=== PATIENT | female | born 1965 | race Asian ===

== ENCOUNTER 2017-11-23 11:47 | Day surgery (SDC) | payer OTHER, SELFPAY ==
[2017-11-23] VITALS (9 sets, daily range): BP systolic 100–133; BP diastolic 58–83; PULSE 78–99; RESP 12–16; TEMP 36.2–36.9; O2SAT 94–98; BMI 27.3
--- NOTE | 2017-11-23 | PATH_ITS ---
[facility] Accession Number: [id number] . 01 Material submitted: . PART A: RIGHT OVARY, FALLOPIAN TUBE AND CYST PART B: LEFT OVARIAN FOSSA BIOPSY PART C: POSTERIOR UTERINE FUNDUS BIOPSY PART D: FIBROID PART E: ENDOMETRIAL CURETTINGS . 02 Diagnosis: A. Right Ovary and Fallopian Tube with Cyst: Benign hemorrhagic cyst, ovary, not further classified (see microscopic description). Fallopian tube unremarkable. . B-C: Biopsies Left Ovarian Fossa and Posterior Uterine Fundus: Changes consistent with endometriosis present in both specimens and supported by immunohistochemistry findings (see microscopic description). . D. Specimen Designated Fibroid: Multiple fragments of leiomyoma, negative for atypia. . E. Endometrial Curettings: Blood containing endometrial surface epithelium and squamous epithelium, negative for atypia. [facility]/11/28/2017 . 02 Electronically signed: . Castillo Katz MD, Pathologist NPI- [id number] . 01 Gross description: . A. Received in formalin, labeled with the patient's name and right ovary, fallopian tube, and cyst, is a 28 g specimen consisting of a 7.1 cm in length by 0.7 cm in diameter fallopian tube with a fimbriated end and an attached 7.3 x 6.7 x 2.9 cm previously opened cyst with a wrinkled, heard-brown external surface. The thickness of the wall cyst averages 0.2 cm. The internal surface of the cyst is pink blue and wrinkled. No excrescences are identified. No normal ovarian tissue is identified. [employer] sections are submitted as follows: A1 - fallopian tube cross-sections and fimbriated end; A2-A3 - cyst wall. B. Received in formalin, labeled with the patient's name and left ovarian fossa biopsy, is one heard-brown soft tissue fragment measuring 0.4 x 0.3 x 0.3 cm. The specimen is entirely submitted in cassette B1. C. Received in formalin, labeled with the patient's name and posterior uterine fundus biopsy, is one heard-brown soft tissue fragment measuring 0.5 x 0.4 x 0.4 cm. The specimen is entirely submitted in cassette C1. D. Received in formalin, labeled with the patient's name and fibroid, are multiple morcellated heard-brown soft tissue fragments measuring 2.4 x 2.1 x 0.6 cm in aggregate. The specimen is entirely submitted in cassette D1. E. Received in formalin, labeled with the patient's name and endometrial curettings, are multiple heard-brown soft tissue fragments admixed with red-brown clotted blood measuring 2.3 x 2.1 x 0.8 cm in aggregate. The specimen is entirely submitted in cassettes E1-E2. (FERNANDO:[id number]) /FRR . 02 Microscopic: . Sections from part A are from the right ovary and fallopian tube. The fallopian tube is essentially unremarkable. The grossly described cyst wall consists of ovarian stroma and fibrous tissue. The lining appears to be smooth but no definite lining cells are identified; therefore, the cyst cannot be definitively classified. There is hemorrhage present and there is no evidence for malignancy. . Biopsies of left ovarian fossa and posterior uterine fundus area (parts B and C) consist of fibrous tissue which is partially covered by flattened cells which are either mesothelial cells or possibly epithelial cells. There is no evidence for malignancy. Since the clinical impression was that of possible endometriosis, immunohistochemistry is performed. . IMMUNOHISTOCHEMISTRY RESULTS: The epithelial appearing cells are focally positive for estrogen receptor and in the same area, there is positive staining for CD10, which would be consistent with endometrial stroma. These findings support the diagnosis of endometriosis. Some of the epithelial appearing cells stain positive for calretinin and this indicates that they are mesothelial cells, but these cells are distinctly different from those that stain positive for ER. The changes are similar in both specimens B and C; however, the ER positive, CD10 positive areas are more prominent in the biopsy from part B. . Sections from part D are multiple fragments of leiomyoma. There is no evidence of atypia. . Sections from part E consist of blood and fragments of endometrial surface epithelium and some squamous epithelium, all of which are negative for significant atypia. The endometrial epithelium shows areas of tubal metaplasia. . 02 Pathologist provided ICD-10: N80.9 . 02 CPT . 563887, 565977, 463022, 000953, 670900, [id number], L10036 Performed at: 01 [facility] [address] [id number] MD Terry Roman MD Phone: [phone] Performed at: [address] [id number] MD Jose Luis Abdi MD Phone: [phone]
[2017-11-23] MEDS: LACTATED RINGERS 1,000 ML 42 ML IV (13:13)
--- NOTE | 2017-11-23 15:14 | PM.PREOP ---
Pre-operative Note Interval Note Pre-op Check: Yes History & Physical Reviewed by Physician Changes: No
[2017-11-23] MEDS: CEFAZOLIN 2 GM/100 ML FROZ.PIGGY IV (15:56)
--- NOTE | 2017-11-23 16:19 | SUR.OPER ---
Lithotomy on padded OR bed. [place] Pad Positioner under torso. Head on pillow, arms padded and tucked at sides. Legs secured in padded yellow fins stirrups.
--- NOTE | 2017-11-23 16:29 | SUR.OPER ---
Lithotomy on padded OR bed. [place] Pad Positioner under torso. Head on pillow, arms padded and tucked at sides. Legs secured in padded yellow fins stirrups.
[2017-11-23] MEDS: BUPIVACAINE 0.25% (PF) VIAL 30 ML INJ (16:46)
[2017-11-23] MEDS: LIDOCAINE 1% W/EPI INJ 20 ML INJ (16:47)
[2017-11-23] MEDS: fentaNYL 100 MCG/2 ML INJ 50 MCG IV (17:56)
--- NOTE | 2017-11-23 18:04 | PM.GYNOP.1 ---
Operative Date/Time/Diagnoses Date of procedure: 11/23/17 Time of procedure: 17:04 Pre-op diagnosis: Ovarian cyst, Abnormal uterine bleeding, Submucosal leiomyoma Post-op diagnosis: other (HALEY, endometriosis) Procedure: Procedures Operation Date: 11/23/17 13:15 Actual Procedures Side Surgeon p Laparoscopic Oophorectomy Salpingoophorectomy, right side, fulguration of endometriosis, laparoscopic biopsy Right MD elaina Iyer Hysteroscopy, D&C , operative hysteroscopy MD elaina Iyer Intrauterine Device Removal Sherly Alberts MD Indications: The patient is a 51-year-old 3 para 1 abortus 2 female here for surgical management of a large approximately 9 cm simple appearing right ovarian cyst. Ultrasound findings are suggestive of a hemorrhagic cyst. In addition, she has had very heavy menses. Workup of such noted an endometrial mass, suspicious for uterine fibroid, measuring 2.4 x 2 x 2.9 cm. A Mirena intrauterine device was placed in the clinic to attempt to help manage her bleeding. However, this has been ineffective at management of her symptoms present. Therefore she is desiring removal of the ovarian cyst as well as removal of the endometrial fibroid. The planned surgical procedure, risks, benefits, limitations, alternatives, and expectations were discussed, and the consent was reviewed and signed prior to the surgery. Surgeon: Sherly Alberts General Manager In Training: Lc Casillas Anesthesia Type: General and Local (0.25% marcaine, plain; 1% lidocaine with epi) Operative Notes Findings: Exam under anesthesia: Uterus approximately 7 weeks, anteverted. Right adnexal fullness noted. Laparoscopic findings: Uterus overall normal in appearance with the exception of a approximately 2 x 1 cm pedunculated fibroid anteriorly. The right ovary is enlarged with a approximately 9 cm cystic mass. No normal ovarian tissue was noted on the right side. The right fallopian tube was stretched over the ovarian cyst. The left tube and ovary were overall normal in appearance. However there were endometriosis lesions within the cul-de-sac, over the left uterosacral, and within the left ovarian fossa. The cystic mass was adhered into the right ovarian fossa. While attempting to free the cyst, incidental rupture occurred. Clear cystic fluid as well as some chocolate cyst fluid was noted. Examination of the ovarian cyst was notably benign with no masses or nodules within the cyst cavity. The liver edge appeared normal laparoscopically. There were adhesions of ascending color epiploicae to the right flank peritoneum. There were also thin filmy adhesions of small bowel to the left lower quadrant, just superior to the left adnexa. Hysteroscopic findings: A large submucosal fibroid was noted with a very broad base extending across the posterior aspect of the endometrial cavity. Attempt was made to resect the fibroid; however, due to hysteroscopic fluid imbalance, the procedure was halted in order to avoid potential fluid overload for the patient. Less than half of the fibroid was removed during this portion of the procedure. Closure Type: primary Specimen(s): endometrial curettings, right tube & ovary and other (Fragments of submucosal fibroid, biopsy left ovarian fossa, biopsy posterior uterine fundus) Applied: catheter Estimated blood loss (mL): 10 Blood products transfused: none Procedure in detail: The patient was taken to the operating room, where general endotracheal anesthesia was administered without complications. The patient was placed into the low dorsal lithotomy position with her lower extremities in [place] stirrups. Exam under anesthesia was then performed with the findings noted above. Perineum, vagina, and abdomen were then prepped and draped in a sterile fashion. Urinary catheterization was then performed using an in-and-out catheter. Procedure time-out was then performed. Attention was first turned to the perineum for placement of the uterine manipulator. A sterile bivalve speculum was inserted into the vagina, then the anterior lip of the cervix was grasped with a single-tooth tenaculum. The Mirena IUD was removed by grasping the strings and applying gentle traction. The cervix was then serially dilated using Bronson dilators until a ZUMI uterine manipulator could be advanced. The balloon was inflated, then the tenaculum and speculum removed from the vagina. Local anesthetic was then injected infraumbilically using 0.25% Marcaine. A vertical skin incision was then made with a scalpel below the umbilicus measuring approximately 7 mm in length. The abdominal wall was then grasped and tented up while a Veress needle was inserted through the incision. Saline drop test was suggestive of intraperitoneal placement. Carbon dioxide gas insufflation was then performed with appropriate opening pressures noted. After instilling approximately 2 L of carbon dioxide, a 5 mm 0 degree laparoscope within a 5 mm trocar was inserted through the anterior layers of the abdominal wall using Optiview technique. The abdomen and pelvis were visualized with the findings as noted above. The patient was placed into Trendelenburg position for better visualization. A second and third trocar were inserted at the patient's right and left lower quadrants. This was done by first instilling local anesthetic, then incising the skin and inserting a 5 mm trocar under direct visualization using the laparoscopic. An atraumatic grasper was then utilized to manipulate the tissue and improve visualization throughout the pelvis. The large right ovarian cyst was adhered to the right ovarian fossa. Using blunt graspers the ovary was pulled further to the abdominal cavity. During this process, incidental rupture of the cyst occurred, and clear straw-colored fluid was noted. There was also some chocolate cyst appearing fluid. A laparoscopic needle and suction was then inserted into the cyst cavity to remove the majority of the cyst fluid. With additional gentle traction, the ovary and cyst were freed from the pelvic sidewall and ovarian fossa. Using the PlasmaKinetic, the right ovarian vessels were cross-clamped, cauterized, and cut. This dissection was then carried anteriorly to meet the right round ligament. The right cornual region of the fallopian tube was then cross-clamped, cauterized, and cut, and the utero-ovarian pedicle on the right side was cross-clamped, cauterized, and cut. This incision was extended laterally to meet the incision created from the anterior dissection at the level of the ovarian vessels. This dissection was all performed close to the ovary, away from the ureter within the right pelvis. Once the ovary and cyst were free, the left lower quadrant trocar was replaced with an 11 mm port. An Endo-Catch bag was then inserted, and the cyst and ovary were placed within the Endo-Catch bag. This was brought to the level of the skin. Here the cyst was decompressed further, and the cyst and ovary were removed from the abdomen. Endometriosis lesions noted at the left ovarian fossa and uterine fundus were biopsied then fulgurated. Some additional cauterization was performed within the right ovarian fossa to achieve hemostasis at the site of the ovarian cyst dissection. The left lower quadrant trocar was then removed, and the fascia grasped with 2 Allis clamps. The carbon oxide gas was allowed to escape, and the trocars were then removed from the abdomen. The fascia of the left lower quadrant incision was closed using 0 Vicryl on a UR 6. The skin of all three trocar sites were then closed with 4-0 Monocryl in a subcuticular fashion. Exofin skin glue was then applied. Attention was then returned to the patient's perineum, where the uterine manipulator balloon was deflated and the uterine manipulator removed. A bivalve speculum was then reinserted into the vagina. The anterior lip of the cervix was then grasped with a single-toothed tenaculum. Local anesthetic using 1% lidocaine with epinephrine was then injected at the 2:00, 4:00, 7:00, and 10:00 positions for a paracervical block. The uterus sounded to approximately 8 cm with the cervix measuring approximately 4 cm. The cervix was then serially dilated until the resectoscope could be gently advanced to the uterine fundus. Using sterile sorbitol for distention, the uterine cavity was visualized with the findings as noted above. Using cautery and the resectoscope, several passes of the loop cautery were performed to remove fibroid tissue. Endometrial curettage was also performed and with the tissue sent separately to pathology. Following just a few passes with the loop cautery, the distention fluid was noted to be approximately 3000 mL in with only 1500 mL out. This was despite fairly adequate output measurement into the suction canister and no visual fluid on the under drapes were floor. There was also no evidence of uterine perforation. Given this fluid discrepancy, there was concern for potential fluid overload. Therefore, the decision was made to hold the hysteroscopic myomectomy at this point. Also given the persisting large submucosal fibroid, the endometrial ablation was also not performed, as the likelihood of successful menorrhagia management was greatly decreased. The tenaculum was then removed, and the tenaculum sites hemostatic with gentle pressure with a sponge stick. At this point, the procedure was deemed complete. Sponge, lap, and needle count were correct x3. There were no complications. The patient was then taken to the recovery room in stable condition.
[2017-11-23] MEDS: OXYCODONE/ACETAMINOPHEN 5/325 TABLET 2 TAB PO (18:12)
--- NOTE | 2017-11-23 18:57 | SUR.PHASEII ---
Had denied nausea throughout PACU and opd stay. When ready to get into car asked when the nausea would go away. Reminded she'd been asked about that several times and said she'd had none. ?'d if some stoicism or language barrier. Given blue bag and told to sleep when she gets home as well as move slowly. Discharge instructions reviewed prior to discharge with spouse and patient.
== END 2017-11-23 18:50 | disposition home or self-care (01) ==
PROVIDERS: Visit Provider Obstetrics & Gynecology
PROC: (CPT 58661; principal; 2017-11-23 13:15)
PROC: 0U5B8ZZ Destruction of Endometrium, Via Natural or Artificial Opening Endoscopic (ICD-10-PCS; CPT 58563; 2017-11-23 13:15)
PROC: (CPT 58661; 2017-11-23 13:15)
DX: N80.9 Endometriosis, unspecified (principal); N83.201 Unspecified ovarian cyst, right side; Z30.432 Encounter for removal of intrauterine contraceptive device; D25.0 Submucous leiomyoma of uterus; E11.9 Type 2 diabetes mellitus without complications; Z79.84 Long term (current) use of oral hypoglycemic drugs; I10 Essential (primary) hypertension; E78.5 Hyperlipidemia, unspecified
CPT/HCPCS: 58661; 58662; 58558; 58301; 88305; 88341; 88342; J0690; J2250; J2405; J2704; J3010